=== PATIENT | female | born 1970 | race Caucasian/White ===

== ENCOUNTER 2025-04-15 12:49 | Emergency (ER) | payer OTHER ==
[~2025-04-15] VITALS: Ht 162.6 cm; Wt 70.8 kg
[2025-04-15] MEDS ORDERED: CEPH-570 PO (14:19)
[2025-04-15 14:54] VITALS: BP 102/64; TEMP 98.2; O2SAT 96
== END 2025-04-15 14:54 | disposition home or self-care (01) ==
LOC: ER 12:49
DX: L03.312 Cellulitis of back [any part except buttock and flank] (principal); Z91.040 Latex allergy status

== ENCOUNTER 2025-04-16 22:42 | Emergency (ER) | payer OTHER ==
[~2025-04-16] VITALS: Ht 162.6 cm; Wt 69.4 kg
[~2025-04-16 22:42] MED LIST: CEPH-570 PO
[2025-04-17] MEDS ORDERED: LIDOCAINE 0.5%-EPI 1:200,000 50 ML VIAL ONE (01:46)
[2025-04-17] MEDS: LIDOCAINE 1%-EPI 1:100,000 20 ML VIAL TP ONE (01:47)
[2025-04-17] MEDS ORDERED: DOXY100T2 PO (02:22)
[2025-04-17] MEDS ORDERED: IBUP-1490 PO (02:22)
[2025-04-17] MEDS ORDERED: KETOROLAC TROMETHAMINE 15 MG/ML VIAL ONE (02:27)
[2025-04-17] MEDS: KETOROLAC TROMETHAMINE 15 MG/ML VIAL IM ONE (02:28)
[2025-04-17 02:32] VITALS: BP 110/66; TEMP 98; O2SAT 97
== END 2025-04-17 02:33 | disposition home or self-care (01) ==
LOC: ER 22:46
DX: L02.212 Cutaneous abscess of back [any part, except buttock and flank] (principal); Z91.040 Latex allergy status
CPT/HCPCS: 99284; 10060; 96372; J1885; J3490